=== PATIENT | female | born 1935 | race Caucasian/White ===

== ENCOUNTER 2020-08-05 16:37 | Inpatient (IN) | payer OTHER ==
[~2020-08-05] VITALS: Ht 170.2 cm; Wt 86.4 kg
--- NOTE | ~2020-08-05 | HC ---
[facility] [place] [address] CONSULTATION Name: MARY CARTY Room #: 201-P ADM IN M.R.#: [id number] Admission: 08/05/20 Attend Phys: Sebastien Qureshi MD Discharge: Date of : 36 Report #: [id number] THIS REPORT FOR: cc: FAM - No family physician/PCP FAM - No family physician/PCP Monico Daley MD ~ DOC #: [id number] Monico Daley MD DATE OF SERVICE: 08/06/2020 PREOPERATIVE DIAGNOSIS: Left parotid cyst. HISTORY OF PRESENT ILLNESS: The patient is an 84-year-old female who was found down after following a few days prior to admission, using her walker and fell backwards. She was unable to get up off the floor and had been on the floor since that unknown time until today when she called to get help. The patient has been admitted with a non-ST elevation myocardial infarction. Echocardiogram has been done this morning, and the patient is pending a cardiac catheterization. She was found to have elevated enzymes, but since the date of the fall is unknown, it is unknown how long the enzymes could have been positive and on decline. She was found to have a mass in her left parotid on admission. The patient was aware of this, but was not bothered by it, therefore, never sought evaluation. I was able to review a CT head done without contrast on admission. The CT was done more for stroke examination and brain examination. This showed a 3.1 x 1.8 cm left parotid "mass." I have reviewed this myself. It involves both superficial and deep lobe and does have features consistent with a cystic mass. This does not appear acute. There were no other findings of intracranial injury. The patient was referred to interventional radiology and underwent an ultrasound-directed fine needle aspiration of the cyst this morning, which has already been done at my evaluation. Results will be pending several days. PAST MEDICAL HISTORY: Significant for this recent myocardial infarction. Her past history is otherwise unknown. The patient is a poor historian. REVIEW OF SYSTEMS: Also difficult to obtain. MEDICATIONS: Reviewed in her electronic health record. ALLERGIES: None. PHYSICAL EXAMINATION: GENERAL: Shows a well developed 84-year-old female [place] [address] CONSULTATION Name: MARY CARTY Room #: 201-P [facility] IN ..#: [id number] Admission: 08/05/20 Attend Phys: Sebastien Qureshi MD Discharge: Date of : 36 Report #: [id number] She is awake and alert. Again, a poor historian. She does not seem concerned with the mass on her face, but tells me a biopsy was done earlier this morning. VITAL SIGNS: Show temperature of 97.7, blood pressure 149/45, respiration of 18, pulse of 70. HEENT: She is normocephalic. Pupils equal, round, reactive to light. Otologic examination, mild cerumen nonobstructing. Nasal exam deviated septum to the left. Oral cavity shows intact dentition, dry mouth, no mucosal lesions. NECK: Shows a Band-Aid present in the left parotid area. There is no mass present. This is soft and floppy consistent with recent aspiration of the cyst. EXTREMITIES: Shows otherwise no other abnormal adenopathy. Trachea is midline. NEUROLOGIC: Cranial nerves II-XII are intact. ASSESSMENT: 1. 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 2. Non-ST elevation myocardial infarction, currently pending workup. PLAN: The final diagnosis will need to await results of the needle biopsy. Cystic masses rarely are malignant. Differential diagnosis, however, would include a Warthin's tumor versus HIV. I would recommend obtaining an HIV to evaluate. If the patient truly did have myocardial infarction, nonurgent surgery should be delayed a minimum of 6 weeks, but may be 6 months. If this mass is truly cystic and can be managed by aspiration, this may be the best treatment for this patient as opposed to surgical excision. I appreciate the consultation and ability to share in her care. I will leave a phone message for to discuss. We will need to follow up pathology when it is available. MD ORLANDO Brandt/KAVON/VIV By: 1149 [id number] Monico Daley MD /tobin
[2020-08-05 16:38] VITALS: BP 166/88
[2020-08-05 17:08] LABS: ABSOLUTE NEUTROPHILS 5.6 thou/uL (1.4-8.2); BASOPHILS 0.3 % (0.0-2.0); HEMATOCRIT 35.9 % (37.0-47.0); HEMOGLOBIN 11.5 gm/dL (12.0-15.0); LYMPHOCYTES 17.6 % (24.0-44.0); MCH 28.7 pg (26.0-34.0); MCHC 32.2 g/dL (28.0-37.0); MCV 89.2 fL (80.0-100.0); MONOCYTES 8.3 % (1.0-8.0); PLATELET COUNT 270 thou/uL (150-400); POLYS 73.8 % (36.0-66.0); RBC 4.02 mil/uL (4.20-5.00); RDW 17.4 % (10.5-14.5); WBC 7.6 thou/uL (4.0-11.0)
[2020-08-05 17:18] LABS: CREATININE 0.9 mg/dL (0.6-1.0); POTASSIUM 3.4 mmol/L (3.5-5.1)
[2020-08-05 17:28] LABS: ALBUMIN 2.9 g/dL (3.4-5.0); TOTAL BILIRUBIN 1.1 mg/dL (0.2-1.0); TOTAL PROTEIN 6.1 g/dL (6.4-8.2); TROPONIN-I 0.18 ng/mL (<0.06)
[2020-08-05 18:22] LABS: URINE BLOOD 3+ (Negative); URINE CLARITY CLEAR; URINE COLOR YELLOW; URINE GLUCOSE-RANDOM* NEGATIVE (Negative); URINE KETONES 1+ (Negative); URINE LEUKOCYTES-REFLEX NEGATIVE (Negative); URINE NITRITE-REFLEX NEGATIVE (Negative); URINE PROTEIN (DIPSTICK) 3+ (Negative); URINE SPECIFIC GRAVITY >= 1.030 (1.005-1.035)
[2020-08-05 18:24] LABS: ICTOTEST (BILI CONFIRMATORY) Negative (Negative); URINE BILIRUBIN NEGATIVE (Negative)
[2020-08-05 18:34] LABS: SQUAMOUS 4-10 Moderate /LPF (0-3)
[2020-08-05 18:35] LABS: URINE WBC-REFLEX 0-5 Rare /HPF (0-5); YEAST-REFLEX Present (None Seen)
[2020-08-05 18:36] LABS: CASTS None Seen /LPF (None Seen); CRYSTALS None Seen /LPF (None Seen)
[2020-08-05 21:29] VITALS: BP 160/72
[2020-08-05 21:40] VITALS: BP 159/78
[2020-08-05 22:03] VITALS: BP 154/67
[2020-08-06] VITALS (13 sets, daily range): BP systolic 116–156; BP diastolic 45–94
--- NOTE | 2020-08-06 01:48 | NUR ---
ASSESSMENT: PT ARRIVED TO UNIT VIA ED, ACCOMPANIED BY STAFF MEMBERS. PT IS ALERT AND ORIENT TIMES THREE, FORGETFUL AT TIMES. DENIES PAIN. DENIES CP. A-FLUTTER PER MONITOR. VSS, AFBRILE. PT STATE THAT SHE CALLED EMS, WAS NOT AWARE OF HOW LONG SHE HAD BEEN "DOWN" POST FALL. INFORMED THIS RN THAT HER NEAREST SUPPORT SYSTEM WAS HER SISTER GURVINDER THAT RESIDES IN [place]. PT FOLLOW SIMPLE COMMANDS. AT TIMES PT FORGET WHAT WAS JUST MENTIONED TO HER R/T THE USE OF THE CALL BUTTON, FALL RISK AND GENERAL INFORMATION REGARDING TO HER CARE. PT IS ABLE TO PIVOT TO THE BSC PER ED. REMAINED IN BED AND REQUEST TO USE THE BED ARGUELLES WITH NO RESULTS. UA PENDING. CONSULTS FOR DR. JOHN AND DR. PRADO TO SEE ROUTINELY. ECHO FOR AM SCHEDULED. SKIN DRY AND INTACT. WILL CONTINUE TO MONITOR.
[2020-08-06 05:18] LABS: ALBUMIN 2.5 g/dL (3.4-5.0); CALCIUM 7.4 mg/dL (8.5-10.1); CREATININE 0.8 mg/dL (0.6-1.0); MAGNESIUM 1.7 mg/dL (1.8-2.4); TROPONIN-I 0.22 ng/mL (<0.06)
[2020-08-06 05:23] LABS: POTASSIUM 2.7 mmol/L (3.5-5.1)
--- NOTE | 2020-08-06 07:10 | EKG ---
[place] [address] [facility] [place] [address] ELECTROCARDIOGRAM REPORT Name: MARY CARTY Room #: 201-P ADM IN M.R.#: [id number] Admission: 08/05/20 Attend Phys: James Rodriguez Discharge: Date of : 36 Report #: [id number] [facility] ED Test Date: 2020-08-05 Test Time: 17:47:38 Pat Name: MARY CARTY Department: Room: 201 Gender: F Jumbo Operator: SHAWN : 1935 Requested By: Madonna Aguirre Order Number: [id number] MD: Chapincito Quesada Measurements Intervals [place] Rate: 80 P: NV: QRS: -29 QRSD: 101 T: 152 QT: 340 QTc: 393 Interpretive Statements Atrial flutter LVH with secondary repolarization abnormality No previous ECG available for comparison Electronically Signed On 08-06-2020 7:10:00 CDT by Chapincito Quesada [email or web address] <ELECTRONICALLY SIGNED> By: Chapincito Quesada MD, [facility] 08/06/20 0710 1747 1747 Chapincito Quesada MD, FACC /EPI
[2020-08-06 08:09] LABS: CHOLESTEROL 209 mg/dL (<200); HDL CHOLESTEROL 34 mg/dL (>40); LDL CHOLESTEROL 146 mg/dL (<100); TC:HDL 6.1 Ratio (Not establshd); TRIGLYCERIDE 147 mg/dL (<150); VLDL 29 mg/dL (<40)
--- NOTE | 2020-08-06 10:07 | 2DMMODE ---
[facility] [place] [address] 2 D/M-MODE ECHOCARDIOGRAM Name: MARY CARTY Room #: 201-P ADM IN M.R.#: [id number] Admission: 08/05/20 Attend Phys: Sebastien Qureshi MD Discharge: Date of : 36 Report #: [id number] THIS REPORT FOR: cc: FAM - No family physician/PCP FAM - No family physician/PCP Lui Wang MD ~ APPROVED REPORT Study performed: 08/06/2020 08:43:16 EXAM: Comprehensive 2D, Doppler, and color-flow Echocardiogram Patient Location: Bedside Room #: 201 Status: routine BSA: 1.91 HR: 72 bpm BP: 137/59 mmHg Rhythm: Atrial Flutter Other Information Study Quality: Adequate Indications Congestive Heart Failure Dizziness and Vertigo Dyspnea Atrial Flutter 2D Dimensions RVDd: 37.71 mm IVSd: 11.66 (7-11mm) LVOT Diam: 17.45 (18-24mm) LVDd: 44.29 mm PWd: 13.29 (7-11mm) Ascending Ao: 27.52 (22-36mm) LVDs: 30.45 (25-40mm) Left Atrium: 47.87 (27-40mm) Aortic Root: 24.06 mm IVC: 25.00 mm Volumes Left Atrial Volume (Systole) Single Plane 4CH: 58.20 mL Single Plane 2CH: 67.84 mL LA ESV Index: 36.00 mL/m2 Aortic Valve AoV Peak Ramón.: 4.86 m/s [facility] [place] [place] [address] 2 D/M-MODE ECHOCARDIOGRAM Name: MARY CARTY Room #: 201-P [facility] IN ..#: [id number] Admission: 08/05/20 Attend Phys: Sebastien Qureshi, Discharge: Date of : 36 Report #: [id number] AO Peak Gr.: 95.39 mmHg LVOT Max P.36 mmHg AO Mean Gr.: 49.18 mmHg LVOT Mean P.90 mmHg AO V2 Mean: 3.06 m/s LVOT Max V: 1.16 m/s AO V2 VTI: 102.09 cm LVOT Mean V: 0.78 m/s MINO (VTI): 0.60 cm2 LVOT V1 VTI: 25.42 cm MINO Vmax: 0.57 cm2 AI Vmax: 3.99 m/s SV (LVOT): 60.76 mL AI Grimes: 2.02 m/s2 AI PHT: 573.05 ms Pulmonary Valve PV Peak Ramón.: 1.31 m/s PV Peak Gr.: 6.84 mmHg Tricuspid Valve TR Peak Ramón.: 2.84 m/s TR Peak Gr.: 32.35 mmHg PA Pressure: 42.00 mmHg Left Ventricle The left ventricle is normal size. There is normal LV segmental wall motion. Mild concentric left ventricular hypertrophy. The left ventricular systolic function is normal. The left ventricular ejection fraction is within the normal range. LVEF is 60-65%. This study is not technically sufficient to allow evaluation of the LV diastolic function due to atrial fibrillation. Right Ventricle The right ventricle is normal size. The right ventricular systolic function is normal. Atria Left atrium is dilated. Right atrium is at the upper limits of normal. Aortic Valve The aortic valve is normal in structure. Aortic valve is calcified. Mild aortic regurgitation. Severe aortic stenosis. Mitral Valve The mitral valve is normal in structure. There is mitral annular calcification. Mild mitral regurgitation. No evidence of mitral valve stenosis. Tricuspid Valve The tricuspid valve is normal in structure. There is trace to mild tricuspid regurgitation. Estimated PAP 42 mmHg. There is moderate [facility] [address] [place] [address] 2 D/M-MODE ECHOCARDIOGRAM Name: MARY CARTY Room #: 201-P ADM IN [facility]#: [id number] Admission: 08/05/20 Attend Phys: Sebastien Qureshi, Discharge: Date of : 36 Report #: [id number] pulmonary hypertension. Pulmonic Valve The pulmonary valve is normal in structure. There is no pulmonic valvular regurgitation. Great Vessels The aortic root is normal in size. IVC is dilated and collapses >50% with inspiration. Pericardium There is no pericardial effusion. <Conclusion> The left ventricle is normal size. Mild concentric left ventricular hypertrophy. The left ventricular systolic function is normal. The right ventricle is normal size. Left atrium is dilated. Severe aortic stenosis. Mild aortic regurgitation. There is mitral annular calcification. Mild mitral regurgitation. <ELECTRONICALLY SIGNED> By: Lui Wang MD 08/06/20 1007 1007 1007 Lui Wang MD /INF
--- NOTE | 2020-08-06 12:30 | NUR ---
Case opened to follow for dc planning. Chart reviewed and play writer visited with the pt at bedside. She is alert and oriented x 3, [place]. She reports living indep in a 2nd story apt at [facility]. She walks with a rwalker and uses the elevator to get to the garage where her car is parked. She reports her only family is her sister Moon who lives in [place]. She does not have an AD/DPOA in place but notes Moon is who to call is she can not make decisions or has an emergency. She is open to a rehab eval and would like 5N if possible. She has not seen a doctor for 5 years and does not take any medications. She is open to cm making a new pt appointment with [facility] prior to dc. She is open to also but does not feel she can afford moving to a [facility] community or [facility]. Lif[facility]/medic alert also discussed. The pt states her fall was several days ago but she was able to crawl around and therefore did not feel there was an emergency. She did call the apt dealer development manager and her sister for help as she was not able to call 911 from her phone. She finally called out for help as she was getting "really hungry". PT/OT/5N evals are pending. Pt having cardiac cath and parotid mass biopsy today. Cm role introduced. Will follow.
--- NOTE | 2020-08-06 13:56 | NUR ---
PT IS ABLE TO ANSWER ALL ORIENTATION QUESTIONS APPROPRIATELY. SHE DOES APPEAR TO RETELL STORIES MULTIPLE TIMES. PT WENT TO ULTRA SOUND THIS AM AND HAD AN ASPIRATION OF PAROTID, FLUID SAMPLE WAS COLLECTED AND SENT TO LAB. PT HAS GOTTEN UP X2 ASSIST TO BEDSIDE COMMODE. PT HAS VERY CONCENTRATED AND FOUL SMELLING URINE. PT ABLE TO SIGN ALL CONSENTS ON HER OWN. PT LEFT UNIT AT 1345 TO GO TO CARDIAC CHANNEL DIRECTOR. NEW IV PLACED IN L FOREARM BY IV TEAM PRIOR TO GOING TO CHANNEL DIRECTOR.
[2020-08-06 15:06] LABS: BE(vivo) 0.2 mmol/L (-2 to +3); HCO3 26.5 mmol/L (22.0-26.0); HCO3 28.8 mmol/L (22.0-26.0); PCO2 VENOUS 50.7 mmHg (41.0-51.0); PO2 87.3 mmHg (80.0-100.0); PO2 VENOUS 33.3 mmHg (35.0-45.0); sO2 95.9 % (92.0-98.0)
[2020-08-06 15:07] LABS: pH 7.329 (7.360-7.450)
[2020-08-07 04:06] LABS: HIV ANTIBODY Non Reactive (Non Reactive)
[2020-08-07 04:35] VITALS: BP 157/56
[2020-08-07 04:56] LABS: HEMATOCRIT 30.7 % (37.0-47.0); HEMOGLOBIN 10.1 gm/dL (12.0-15.0); MCH 29.4 pg (26.0-34.0); RBC 3.45 mil/uL (4.20-5.00); RDW 17.2 % (10.5-14.5); WBC 6.9 thou/uL (4.0-11.0)
[2020-08-07 05:11] LABS: CALCIUM 7.8 mg/dL (8.5-10.1); CREATININE 0.8 mg/dL (0.6-1.0); POTASSIUM 3.1 mmol/L (3.5-5.1)
[2020-08-07 07:28] VITALS: BP 138/53
[2020-08-07 08:41] LABS: MAGNESIUM 2.3 mg/dL (1.8-2.4)
--- NOTE | 2020-08-07 10:37 | CATHLAB ---
[facility] [place] [address] INVASIVE PROCEDURE REPORT Name: MARY CARTY Room #: 201-P ADM IN M.R.#: [id number] Admission: 08/05/20 Attend Phys: Sebastien Qureshi MD Discharge: Date of : 36 Report #: [id number] THIS REPORT FOR: cc: FAM - No family physician/PCP FAM - No family physician/PCP Lui Wang MD ~ APPROVED REPORT Study performed: 08/06/2020 14:02:10 Patient Details Patient Status: Out-Patient Room #: The patient is a 84 year-old female Event Personnel Lui Wang Expander, Magali Jeffrey RN RN, Gemma De Los Santos RTR Leroy Torres Roberta Monitor, Martine Ham RTR, WIRE INSULATOR Monitor Procedures Performed Art Access - R femoral artery* Sixto Access - R femoral vein Right and Left Heart Cath w/or w/o Coronarie [id number] [facility] 70129 Initial Mod Sed Same Phys/QHP Gr [id number] 66232 Mod Sed Same Phys/QHP Ea 199654 Indication Non-STEMI , Atrial fibrillation, Dyspnea, Valvular heart disease, Murmur Risk Factors HypercholesterolemiaPhysical Activity Procedure Narrative The Right Groin^ was infiltrated with 1% Lidocaine subcutaneous anesthesia. A PINNACLE 6FR Sheath #[id number] sheath was inserted into the RFA. Coronary angiography was performed using coronary diagnostic catheters. The right coronary system was accessed and visualized with a JR4 catheter. The left coronary system was accessed and visualized with a JL4 catheter. The left ventricle was accessed and visualized with a ANGLE PIG catheter. There was no hematoma. Intraoperative Conscious Sedation Sedation start time: 1443 Case end Time: 1545 [facility] [address] [place] [address] INVASIVE PROCEDURE REPORT Name: MARY CARTY Room #: 201-P [facility] IN [facility].#: [id number] Admission: 08/05/20 Attend Phys: Sebastien Qureshi, Discharge: Date of : 36 Report #: [id number] Fentanyl mcg Versed mg Fluoro Time: 10.10 minutes Dose: DAP 69726.80 cGycm2 1311 mGy Contrast Type and Amount: Omnipaque 100 ml Coronary Angiography The patient's coronary anatomy is right dominant. Diagnostic Cath Left Main The left main artery is a large-caliber vessel, with moderate calcifications. There is a borderline, eccentric stenosis of 50% in the proximal segment. LAD The LAD is a moderate-sized caliber vessel, calcified in the proximal segments. Traverses the anterior wall and wraps around the apex. There is a borderline stenosis in the proximal segment, 50 to 70%. There is a moderate stenosis in the distal segment. Diagonal 1 This is a small caliber vessel, with no flow-limiting lesions. Diagonal 2 This is a small caliber vessel, with no flow-limiting lesions. Circumflex The left circumflex artery supplies 1 obtuse marginal artery. OM1 This is a moderate-sized caliber vessel, supplies several branches as it travels the lateral wall. There is one branch with a ostial stenosis, 60%. Right Coronary The RCA is a dominant vessel, calcified. There is a severe occlusion in the ostium, 95%. There is mild to moderate disease in the midsegment. R PDA There is a mild lesion in the ostium. RPLV This vessel is patent with no flow-limiting lesions. Left Ventriculography Left Ventriculography was not performed. Ejection Fraction was 55-60% based off patient's Echocardiogram. There is approximately a 35 mm gradient across the aortic valve. Hemodynamics The right atrial mean pressure is 14 mmHg. The right ventricular pressure is 65/5 mmHg. The pulmonary artery pressure is 68/15 mmHg with a mean of 38 mmHg. The mean pulmonary capillary wedge pressure is 33 mmHg. The aortic pressure is 137/50 mmHg with a mean of 79 mmHg. The left ventricular pressure is 137/49 mmHg with a mean of mmHg. The left ventricular end diastolic pressure is 60 mmHg. PaO2 saturation is 59.40 %. Arterial saturation is 95.90 %. The cardiac output using the Jaime method is 2.79 L/min. The cardiac index using [facility] [address] [place] [address] INVASIVE PROCEDURE REPORT Name: MARY CARTY Room #: 201-P [facility] IN M.R.#: [id number] Admission: 08/05/20 Attend Phys: Sebastien Qureshi, Discharge: Date of : 36 Report #: [id number] the Jaime method is 1.46 L/min/m2. The mean aortic valve gradient is 23.16 mmHg. The aortic valve area is 0.65 cm2. Conclusion 1. 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 2. There is a borderline stenosis involving the left main and proximal LAD. 3. The vessels are moderately calcified. 4. There is severe aortic stenosis and normal LV systolic function. 5. Right-sided hemodynamics as listed, including moderate to severe pulmonary hypertension. 6. Recommend risk factor management and CV consultation for surgery. <ELECTRONICALLY SIGNED> By: Lui Wang MD 08/07/20 1036 1036 Lui Wang MD /INF
[2020-08-07 11:05] VITALS: BP 151/67
[2020-08-07 12:42] VITALS: BP 151/67
--- NOTE | 2020-08-07 12:45 | NUR ---
Case discussed with the care team. Therapy and 5N evals are pending today as she was on bedrest yesterday. CTS consult for possible CABG or stenting. Appointment made with [facility] for new pcp appt with Dr. Craven 08/28/20 at 1:30pm. This has been noted on her dc instructions. No weekend dc anticipated. Murphy navigator aware of possible referral should the pt be able to return home with hh. Will follow.
--- NOTE | 2020-08-07 16:22 | NUR ---
PATIENT ALERT/ORIENTED - FORGETFUL AT TIMES. HAD CT DONE PER CTS REQUEST. WAITING TO HEAR PLAN FOR TREATMENT/INTERVENTION FROM CARDIOLOGY/CTS. PATIENT WORKED WITH PT/OT TODAY. SITTING UP IN CHAIR. IV FLUIDS INFUSING. REPLACING POTASSIUM PER ORDERS.
[2020-08-07 16:24] VITALS: BP 115/49
[2020-08-07 19:48] VITALS: BP 103/47
[2020-08-08] VITALS (7 sets, daily range): BP systolic 129–154; BP diastolic 42–78
[2020-08-08 00:06] LABS: GLYCOHEMOGLOBIN (HGB A1C) 5.6 % (4.8-5.6)
--- NOTE | 2020-08-08 03:15 | NUR ---
PT IS ALERT AND ORIENTED X4. LUNG ARE CLEAR . ON ROOM AIR. PT WAS SITING ON THE CHAIR WANTING TO GO BACK TO BED SO GAIT USED AND ASSIST X2. PT IS WEAK MINIMAL STRENGTH IN BEARING WEIGHT OR ABLE TO STAND. ABDOMEN IS ROUND BOWEL SOUNDS ACTIVE. DENIES ANY PAIN ISSUES AT THIS TIME. CALL LIGHT WITHIN REACH IF NEEDS ASSISTANCE. VOIDS PER BED ARGUELLES AT THIS TIME
[2020-08-08 09:51] LABS: HEMATOCRIT 32.3 % (37.0-47.0); HEMOGLOBIN 10.7 gm/dL (12.0-15.0); MCH 29.3 pg (26.0-34.0); MCV 88.7 fL (80.0-100.0); RBC 3.64 mil/uL (4.20-5.00); WBC 6.4 thou/uL (4.0-11.0)
[2020-08-08 10:01] LABS: CREATININE 0.8 mg/dL (0.6-1.0); MAGNESIUM 1.8 mg/dL (1.8-2.4); POTASSIUM 3.8 mmol/L (3.5-5.1)
[2020-08-09 03:57] VITALS: BP 181/70
--- NOTE | 2020-08-09 04:35 | NUR ---
PT IS ALERT AND ORIENTED DROWSY QUITE A BIT SLEEPS. INCONTINENT SOMETIMES AND OTHER TIMES CALLS FOR BEDPAN. EXTREMELY WEAK NOT ASSIST WITH TURNING IN BED TO CHANGE;. NEEDS STREGTHENING AND PT. VS STABLE. WILL CONTINUE TO ASSESS AND MONITOR. ON ROOM AIR. LUNGS ARE CLEAR . CALL LIGHT WITHIN REACH IF NEEDS ASSISTANCE
[2020-08-09 05:22] LABS: CALCIUM 8.4 mg/dL (8.5-10.1); CREATININE 0.7 mg/dL (0.6-1.0); MAGNESIUM 1.8 mg/dL (1.8-2.4); POTASSIUM 4.5 mmol/L (3.5-5.1)
[2020-08-09 07:29] VITALS: BP 166/72
--- NOTE | 2020-08-09 08:59 | NUR ---
ASSUMED PT CARE AT 0700. PT RESTING AT THIS TIME. AT 0840, PT ASSESSMENT PERFORMED CHARTED. PTS IV LEAKING, IV REMOVED AND PLACED A NEW IV IN THE LEFT UPPER FOREARM. PT TOLERATED IV INSERTION WELL. VSS. WILL CONTINUE TO MONITOR AND FOLLOW POC.
--- NOTE | 2020-08-09 11:46 | NUR ---
PT IN BED WATCHING TV. ASSESSMENT UNCHANGED. PT VOICES NO CONCERNS AT THIS TIME. VSS. WILL CONTINUE TO MONITOR AND FOLLOW POC.
[2020-08-09 11:53] VITALS: BP 133/66
[2020-08-09 15:39] VITALS: BP 167/73
--- NOTE | 2020-08-09 15:53 | NUR ---
PTS ASSESSMENT UNCHANGED. PT VOICES NO CONCERNS AT THIS TIME. VSS. WILL CONTINUE TO MONITOR AND FOLLOW POC. PTS PLAN IS TO GO TO NURSE PRACTICAL TOMORROW WITH DR ESCAMILLA.
[2020-08-09 20:01] VITALS: BP 149/74
[2020-08-09 23:49] VITALS: BP 149/74
[2020-08-10] VITALS (12 sets, daily range): BP systolic 115–170; BP diastolic 54–83
[2020-08-10 03:55] LABS: CALCIUM 8.5 mg/dL (8.5-10.1); MAGNESIUM 1.9 mg/dL (1.8-2.4); POTASSIUM 4.3 mmol/L (3.5-5.1)
--- NOTE | 2020-08-10 05:26 | NUR ---
ASSUMED CARE AT CHANGE OF SHIFT, AFLUTTER ON TELE, HR CONTROLLED IN THE 70S, DENIES PAIN OR SOB, REMAINS ON RA, ASESSMENTS CHARTED, BP ELEVATED THIS AM, MSW NOTIFIED, NO ORDERS RECEIVED, NPO FOR CARDIAC CATH TODAY, NO NEEDS AT THIS TIME, WILL CONTINUE TO MONITOR AND FOLLOW POC, WILL PASS ON REPORT
--- NOTE | 2020-08-10 07:48 | NUR ---
ASSUMED PT CARE AT 0700. PT IN BED WATCHING TV AT THIS TIME. PALMER, VP PUBLISHER DEVELOPMENT RN CALLED AND STATES THEY WILL BE UP TO GET PATIENT SOON FOR HER PROCEDURE AND TO GO AHEAD AND GIVE HER THE SCHEDULED ASA. PT ASSESSMENT CHARTED. PT VOICES NO CONCERNS AT THIS TIME. WILL CONTINUE TO MONITOR AND FOLLOW POC.
--- NOTE | 2020-08-10 09:26 | NUR ---
PT LEFT FOR DETACKER AT 0900.
--- NOTE | 2020-08-10 11:26 | CATHLAB ---
[facility] [address] [place] [address] INVASIVE PROCEDURE REPORT Name: MARY CARTY Room #: 201-P ADM IN M.R.#: [id number] Admission: 08/05/20 Attend Phys: Sebastien Qureshi MD Discharge: Date of : 36 Report #: [id number] THIS REPORT FOR: cc: FAM - No family physician/PCP FAM - No family physician/PCP Lui Wang MD ~ APPROVED REPORT Study performed: 08/10/2020 09:10:45 Patient Details Patient Status: In-Patient Room #: 201 The patient is a 84 year-old female Event Personnel Lui Wang Biochemist, John Almanza RN RN, Martine Ham RTR, JAVON Scrub, Nilda Colon RTR Monitor Procedures Performed Art Access - L femoral artery* MARY Place w/wo Plasty Single RCA 430003 Hemostasis w/ Mynx 38571 Initial Mod Sed Same Phys/QHP Gr5y [id number] 85757 Mod Sed Same Phys/QHP Ea 224583 Indication Non-STEMI , Arrhythmia, Dyspnea, Valvular heart disease, The patient had a recent cardiac catheterization, 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 Underwent surgical consultation, deemed high risk for surgery. Now presents for PCI of a severe RCA occlusion. Risk Factors Obesity, HypercholesterolemiaPhysical Activity, Hypertension Procedure Narrative The Left Groin^ was infiltrated with 1% Lidocaine subcutaneous anesthesia. A PINNACLE 6FR Sheath #[id number] sheath was inserted into the LFA^. Coronary angiography was performed using coronary diagnostic catheters. Pre-demployment femoral angiogram was performed . Closure device was deployed with a Fr 6f/7f MYNX ASSISTANT PURCHASING MANAGER. The patient tolerated the procedure well and there were no complications associated with the procedure. There was no hematoma. Intraoperative Conscious Sedation [facility] [address] [place] [address] INVASIVE PROCEDURE REPORT Name: MARY CARTY Room #: 201-P [facility]#: [id number] Admission: 08/05/20 Attend Phys: Sebastien Qureshi, Discharge: Date of : 36 Report #: [id number] Sedation start time: 9:36 Case end Time: 10:42 Fluoro Time: 14.40 minutes Dose: DAP 35102.70 cGycm2 2768 mGy Contrast Type and Amount: Visipaque 115 ml Coronary Angiography The patient's coronary anatomy is right dominant. Diagnostic Cath Right Coronary The RCA is a dominant vessel with severe occlusions in the ostium and proximal segment, 80 to 95%. Hemodynamics The aortic pressure is 175/61 mmHg with a mean of 105 mmHg. PCI Technique Lesion Percutaneous coronary intervention was performed on the ostial/proximal right coronary artery. The lesion stenosis prior to intervention was 95% with SANDY 3 flow. A LAUNCHER JR3.5 Guide Catheter was used to engage the ostium. A STRAIGHT LUGE Interventional Guidewire was used to cross the lesion. BALLOON DILATION A Balloon catheter EUPHORA 2.5mm x 12 mm was inserted and inflated up to 18.00atm for 16seconds. Additional Inflation: 14.00atm for 9seconds. A NC TREK 3.00mm x 12mm RX balloon catheter was inserted and inflated 18 Alex for 19 Seconds. Additional Inflation: 18 Alex for 18 Seconds. STENT DEPLOYMENT A drug-eluting stent RESOLUTE ULYSSES OTW 4.0mm x 30mm was inserted and inflated up to 12.00atm for 16seconds. Additional Inflation: 16.00atm for 10seconds. POST STENT DEPLOYMENT BALLOON DILATION A Balloon catheter NC TREK 4.00mm x 12mm RX was inserted and inflated up to 18.00atm for 15seconds. Additional Inflation: 18.00atm for 15seconds. Additional Inflation: 20.00atm for 20seconds. Final angiography reveals 5 % stenosis with SANDY 3 flow. Conclusion 1. Successful insertion of a drug-eluting stent in the ostial/proximal RCA segment. [facility] [address] [place] [address] INVASIVE PROCEDURE REPORT Name: MARY CARTY Room #: 201-P [facility] IN ..#: [id number] Admission: 08/05/20 Attend Phys: Sebastien Qureshi, Discharge: Date of : 36 Report #: [id number] 2. Normal LV systolic function. 3. Recommend dual antiplatelet therapy and aggressive risk factor management. <ELECTRONICALLY SIGNED> By: Lui Wang MD 08/10/206 1126 112 Lui Wang MD /INF
--- NOTE | 2020-08-10 11:49 | NUR ---
PT REMAINS ON BEDREST. ASSESSMENT UNCHANGED. LEFT GROIN SITE CLEAN DRY AND DRESSING INTACT. VSS. WILL CONTINUE TO MONITOR. PTS SISTER CALLED AND UPDATE WAS GIVEN, OKAY'D BY PATIENT. PTS SISTER WAS UPSET TO WHY THE PATIENT IS THE ONLY ONE GIVING UP DATES TO HER. PT IS A&OX3 AND HAS NOT EXPRESSED THAT SHE WOULD LIKE HER SISTER UPDATED. I EDUCATED THE SISTER THAT SHE MAY CALL THE UNIT FOR QUESTIONS WITH CODE GIVEN TO HER BY THE PATIENT AND IF THERE ARE ANY FURTHER QUESTIONS FOR THE PROVIDER THAT THE PROVIDER WILL BE NOTIFIED AND RN COULD TRY AND COORDINATE THE PHONE CALL BETWEEN HER AND THEM. WILL CONTINUE TO MONITOR PT AND FOLLOW POC.
--- NOTE | 2020-08-10 12:35 | EKG ---
[place] [address] [facility] [place] [address] ELECTROCARDIOGRAM REPORT Name: MARY CARTY Room #: 201-P ADM IN M.R.#: [id number] Admission: 08/05/20 Attend Phys: Sebastien Qureshi MD Discharge: Date of : 37 Report #: [id number] [facility] Test Date: 2020-08-10 Test Time: 11:25:57 Pat Name: MARY CARTY Department: Room: 201 P Gender: F Lan Engineer: : 1935 Requested By: Lui Wang Order Number: [id number] MD: Chapincito Quesada Measurements Intervals [place] Rate: 85 P: [place]: QRS: -20 QRSD: 100 T: 123 QT: 392 QTc: 467 Interpretive Statements Atrial flutter LVH with secondary repolarization abnormality Anterior ST elevation, probably due to LVH Compared to ECG 08/05/2020 17:47:38 ST (T wave) deviation now present Electronically Signed On 08-10-2020 12:35:11 CDT by Chapincito Quesada [email or web address] <ELECTRONICALLY SIGNED> By: Chapincito Quesada MD, [facility] 08/10/20 1235 1125 1125 Chapincito Quesada MD, [facility] /EPI
--- NOTE | 2020-08-10 15:43 | NUR ---
PTS BED REST IS COMPLETE. PTS GROIN SITE IS CLEAN DRY AND INTACT. VSS. PT REPOSITIONED. WILL CONTINUE TO MONITOR AND FOLLOW POC.
--- NOTE | 2020-08-10 16:17 | NUR ---
BPCI letter provided to patient, admits from home
--- NOTE | 2020-08-10 17:06 | PATH ---
[facility] [address] [place] [address] PATHOLOGY RPT PROCEDURE Name: MARY CARTY Room #: 201-P ADM IN .R.#: [id number] Admission: 08/05/20 Date of : 37 Discharge: Report #: [id number] Path Case #: [id number] Note [facility] Accession Number: [id number] TESTS RESULT FLAG UNITS REF RANGE LAB Clinician Provided Cytology Information No. of containers..01 Other (Miscellaneous) Source: LT PAROTID CYST DIAGNOSIS: LT PAROTID CYST INADEQUATE, INSUFFICIENT CELLS FOR STUDY. THIS INTERPRETATION INCLUDES EVALUATION OF A CELL BLOCK. NO VIABLE CELLULAR ELEMENTS PRESENT, CONSISTENT WITH ASPIRATION OF CYST FLUID. Pathologist ICD10: 02 K11.6 Signed out by: 02 Dania Swartz MD, Pathologist NPI- [id number] Performed by: 01 Danae Fortune, Mineral Resources Inspector ([facility]) Gross description: 01 10ML, YELLOW, 1TP 1CB /LCS 08/07/2020 0636 Local FLAG LEGEND: L-Low Normal,H-High Normal,LL-Alert Low,HH-Alert High <-Panic Low,>-Panic High,A-Abnormal,AA-Critical Abnormal Performed at: [address] [place] [address] Sam Verduzco MD, [address] [address] Dania Swartz MD, Specimen Comment: A courtesy copy of this report has been sent to [phone] Specimen Comment: Report sent to Specimen Comment: A duplicate report has been generated due to demographic updates. Performed at: [address], [place], [place] [id number] MD Sam Verduzco MD Phone: [phone]
[2020-08-11 04:30] VITALS: BP 114/69
--- NOTE | 2020-08-11 04:53 | NUR ---
ASSUMED PT CARE AROUND 1900. NO SIGNIFICANT EVENTS DURING THE NIGHT. PT SLEPT MOST OF THE NIGHT. RESPIRATIONS EVEN AND UNLABORED. AFLUTTER ON TELE. DENIES ANY CHEST PAIN. LEFT GROIN CATH SITE C/D/I, SOFT, NO HEMATOMA. INCONTIENT OF URINE - FEMALE EXTERNAL CATHETER IN PLACE. FALL PRECAUTIONS IN PLACE. PROGRESSING TOWARD POC GOALS.
[2020-08-11 04:54] LABS: HEMOGLOBIN 9.8 gm/dL (12.0-15.0); MCH 29.4 pg (26.0-34.0); MCHC 32.6 g/dL (28.0-37.0); MCV 90.2 fL (80.0-100.0); RBC 3.32 mil/uL (4.20-5.00); RDW 17.5 % (10.5-14.5)
[2020-08-11 05:42] LABS: ALBUMIN 2.2 g/dL (3.4-5.0); CALCIUM 7.9 mg/dL (8.5-10.1); CREATININE 0.8 mg/dL (0.6-1.0); MAGNESIUM 1.8 mg/dL (1.8-2.4); POTASSIUM 3.9 mmol/L (3.5-5.1); TOTAL BILIRUBIN 0.6 mg/dL (0.2-1.0); TOTAL PROTEIN 5.5 g/dL (6.4-8.2)
[2020-08-11 07:16] VITALS: BP 139/65
--- NOTE | 2020-08-11 07:54 | NUR ---
ASSUMED PT CARE AT 0700. 0750 PT ASSESSMENT PERFORMED CHARTED. PT VOICES NO C/O OF PAIN AT THIS TIME. PT RESTING DUE TO NOT SLEEPING WELL. VSS. WILL CONTINUE TO MONITOR TODAY AND FOLLOW POC.
--- NOTE | 2020-08-11 08:30 | EKG ---
[place] [address] [facility] [place] [address] ELECTROCARDIOGRAM REPORT Name: JHON CARTYCATE Ortiz Room #: 201-P ADM IN M.R.#: [id number] Admission: 08/05/20 Attend Phys: Sebastien Qureshi MD Discharge: Date of : 36 Report #: [id number] [facility] Test Date: 2020-08-11 Test Time: 07:06:03 Pat Name: MARY CARTY Department: Room: 201 P Gender: F Profile Stitching Machine Operator: FSCHWALCECI : 1935 Requested By: Lui Wang Order Number: [id number] MD: Sandeep Bailey Measurements Intervals [place] Rate: 74 P: [place]: QRS: -20 QRSD: 99 T: 144 QT: 403 QTc: 448 Interpretive Statements Atrial flutter with predominant 4:1 AV block LVH with secondary repolarization abnormality Baseline wander in lead(s) V5 Compared to ECG 08/10/2020 11:25:57 No significant change was found Electronically Signed On 08-11-2020 8:30:25 CDT by Sandeep Bailey [email or web address] <ELECTRONICALLY SIGNED> By: Sandeep Bailey MD, [facility] 08/11/20 0830 0706 Sandeep Bailey MD, [facility] /EPI
[2020-08-11 08:37] LABS: HEMATOCRIT 32.9 % (37.0-47.0); HEMOGLOBIN 10.8 gm/dL (12.0-15.0); MCH 29.2 pg (26.0-34.0); MCHC 32.8 g/dL (28.0-37.0); RBC 3.7 mil/uL (4.20-5.00); RDW 17.4 % (10.5-14.5)
[2020-08-11 08:45] LABS: CALCIUM 8.3 mg/dL (8.5-10.1); POTASSIUM 4.3 mmol/L (3.5-5.1)
[2020-08-11 08:58] LABS: TROPONIN-I 6.86 ng/mL (<0.06)
--- NOTE | 2020-08-11 09:39 | HC ---
[facility] [place] [address] CONSULTATION Name: MARY CARTY Room #: 201-P ADM IN M.R.#: [id number] Admission: 08/05/20 Attend Phys: Sebastien Qureshi MD Discharge: Date of : 36 Report #: [id number] THIS REPORT FOR: cc: THERESA - No family physician/PCP FAM - No family physician/PCP Kemar Soto MD ~ DOC #: [id number] Kemar Soto MD DATE OF SERVICE: 08/06/2020 REASON FOR CONSULTATION: We were asked by Dr. Wang to see the patient. HISTORY OF PRESENT ILLNESS: The patient is an 84-year-old admitted on 08/05/2020. The patient told me that she fell at home and was on the floor for 10 days, unable to get up. The patient was able to crawl, but was unable to stand. The patient states that she lost her balance and fell backwards and denies specific loss of consciousness. The patient denies chest pain or shortness of breath. Since admission, the patient has multiple studies including transthoracic echo that shows severe aortic valve stenosis with an aortic valve area of 0.6 cm2, peak gradient of 95 and a mean gradient of 49. Cardiac catheterization was also done. This shows a moderate left main stenosis and a severe right coronary ostial stenosis along with other disease. Left ventricular function by echo was satisfactory, 60-65% range. PAST MEDICAL HISTORY: The patient denies taking medication at home. She denies having chronic disease. ALLERGIES: Denies allergies. REVIEW OF SYSTEMS: I agree with her review of systems as dictated by the emergency room physician. PHYSICAL EXAMINATION: GENERAL: The patient is in bed, seems to be comfortable. VITAL SIGNS: Temperature 37.1, pulse rate 60, blood pressure 116/51, respiratory rate 18. HEENT: No scleral icterus. No arcus. NECK: No mass, no cervical bruit, but there is a transmitted murmur from the heart. CHEST: Clear to auscultation. HEART: Heart rhythm is regular with a loud aortic stenosis murmur radiating to the neck. ABDOMEN: Soft. [facility] [address] [place] [address] CONSULTATION Name: MARY CARTY Room #: 201-P ADM IN .R.#: [id number] Admission: 08/05/20 Attend Phys: Sebastien Qureshi MD Discharge: Date of : 36 Report #: [id number] EXTREMITIES: Edema in both lower extremities, somewhat asymmetric. Popliteal pulses are 1-2+ bilaterally. SKIN: No rash or infection. NEUROLOGIC: No obvious motor or sensory dysfunction. MUSCULOSKELETAL: No obvious bone or joint asymmetry or deformity. PSYCHIATRIC: Shows insight into problem, answers questions appropriately, but in general, the patient is quite frail. ASSESSMENT AND PLAN: The patient is ____ aortic valve and coronary artery disease. Normally, we would recommend aortic valve replacement and coronary artery bypass. The patient certainly meets definition of frailty and this is a sort of the patient in whom transaortic valve replacement is offered. Unfortunately, there may not be a good percutaneous option for treating the coronary disease. I will discuss this matter with Dr. Wang. The patient seems to be willing to submit to any procedure we as a group recommend, but she is interested in exploring for "lesser" invasive options. It is a privilege to participate in this challenging patient's care. Thank you for the consult. Kemar Soto MD JF/LUKAS/SANG <ELECTRONICALLY SIGNED> By: Kemar Soto MD 08/11/20 0939 [id number] 1541 Kemar Soto MD /nt
--- NOTE | 2020-08-11 10:26 | NUR ---
at 0827, pt had a rapid response team called. pt was up to the bedside of the commode with PT/OT when reported pt went unresponsive. PT/OT noted some tremoring. upon RN arrival pt was back in bed, pt unable to answer questions and follow commands. after a couple min pt started to come to. pts vitals were stable throughout the event, with no variation from baseline. we will continue to closely monitor patient and follow poc. Dr. Qureshi and Dr. Wang at bedside for the event.
[2020-08-11 11:15] VITALS: BP 91/35
[2020-08-11 15:22] VITALS: BP 93/37
[2020-08-11 20:00] VITALS: BP 97/50
[2020-08-11 23:41] VITALS: BP 101/51; BP 101/512
[2020-08-12] VITALS (15 sets, daily range): BP systolic 102–129; BP diastolic 35–81
--- NOTE | 2020-08-12 04:30 | NUR ---
ASSUMED PT CARE AROUND 1900. PT SLEPT MOST OF THE NIGHT. RESPIRATIONS EVEN AND UNLABORED. SHE REMAINS ON 2L NC. DENIES ANY PAIN. LEFT GROIN CATH SITE SOFT, NO HEMATOMA. VSS. AFEBRILE. AFIB/AFLUTTER ON TELE. HR 70S-80S. FALL PRECAUTIONS IN PLACE. PROGRESSING SLOWLY TOWARD POC GOALS. WILL CONTINUE TO MONITOR FURTHER.
[2020-08-12 06:13] LABS: CALCIUM 7.9 mg/dL (8.5-10.1); CREATININE 1.1 mg/dL (0.6-1.0); POTASSIUM 4.3 mmol/L (3.5-5.1)
[2020-08-12 06:19] LABS: TROPONIN-I 11.24 ng/mL (<0.06)
--- NOTE | 2020-08-12 09:04 | EKG ---
[address] [address] ELECTROCARDIOGRAM REPORT Name: JHON CARTYCATE Ortiz Room #: 201-P ADM IN M.R.#: [id number] Admission: 08/05/20 Attend Phys: Sebastien Qureshi MD Discharge: Date of : 36 Report #: [id number] [facility] Test Date: 2020-08-11 Test Time: 08:28:01 Pat Name: MARY CARTY Department: Room: 201 P Gender: F Rejector: FSCHWALBE : 1935 Requested By: Sebastien Qureshi Order Number: [id number] MD: Sandeep Bailey Measurements Intervals [place] Rate: 114 P: [place]: QRS: -61 QRSD: 94 T: 138 QT: 322 QTc: 444 Interpretive Statements Atrial flutter LVH with secondary repolarization abnormality Leftward axis Baseline wander in multiple lead(s) Compared to ECG 08/11/2020 07:06:03 Lateral T wave abnormality is more pronounced Electronically Signed On 08-12-2020 9:04:06 CDT by Sandeep Bailey [email or web address] <ELECTRONICALLY SIGNED> By: Sandeep Bailey MD, [facility] 08/12/20 0904 7 Sandeep Bailey MD, [facility] /EPI
--- NOTE | 2020-08-12 09:53 | NUR ---
Assess for length of stay. Admit with NSTEMI, fall, dehydration. Advanced age 84. Chart notes high surgical risk for revascularization. Pending heart cath today and is NPO. Was eating 50-100% meals, except 5/4 refused 2 meals and ate 75% of 3rd meal. No signficant wt changes. On statin for LDL 146, chol 209. Recommend resume heart healthy diet following cath. Note may need rehab. Low nutrition risk at this time
--- NOTE | 2020-08-12 17:29 | NUR ---
Patient with elevated troponins. 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 Discussed post acute care. Patient interested in 5N. Reviewed skilled list as well. Patient believes she has secondary insurance she is unsure of name. She belives shara [employer] ([employer] She reports if we call there they may be able to track info. Patient has noone who can bring her clothes or id.
--- NOTE | 2020-08-12 19:47 | NUR ---
Assumed pt care this am, VS stable. diet and medications are tolerated well. Troponin at 11.24 seen by cardio, scheduled for cat lab today at noon. Was kept NPO for lunch. External Fc in place draiin light yellow urine. Pt came back post cat, no stent placed on the left groin, frequent check do post. Can move at 10:30 pm post cat. POC followed with no signs or verbalizations of distress noted. Spoke to sister Moon earlier, tried to call back now but to no avail for an update, will endorsed to the night nurse. Moon Hogan [phone].
[2020-08-13] VITALS (9 sets, daily range): BP systolic 112–144; BP diastolic 42–81
--- NOTE | 2020-08-13 04:39 | NUR ---
pt on bedrest till 2229, set up in bed and turned as needed, no c/o pain, vss, external catheter with clear yellow urine, fluids infused and iv sl, remains on 2 l/nc, tolerated post cath tray without any difficulty, will con't to monitor per ppoc.
[2020-08-13 05:21] LABS: HEMATOCRIT 28.6 % (37.0-47.0); HEMOGLOBIN 9.2 gm/dL (12.0-15.0); MCH 29.3 pg (26.0-34.0); MCHC 32.1 g/dL (28.0-37.0); MCV 91.4 fL (80.0-100.0); RBC 3.12 mil/uL (4.20-5.00); RDW 17.9 % (10.5-14.5)
[2020-08-13 05:26] LABS: CALCIUM 7.7 mg/dL (8.5-10.1); CREATININE 0.9 mg/dL (0.6-1.0); POTASSIUM 4.3 mmol/L (3.5-5.1)
--- NOTE | 2020-08-13 09:10 | CATHLAB ---
[facility] [place] [address] INVASIVE PROCEDURE REPORT Name: MARY CARTY Room #: 201-P ADM IN M.R.#: [id number] Admission: 08/05/20 Attend Phys: Sebastien Qureshi MD Discharge: Date of : 36 Report #: [id number] THIS REPORT FOR: cc: FAM - No family physician/PCP FAM - No family physician/PCP Lui Wang MD ~ APPROVED REPORT Study performed: 08/12/2020 14:51:14 Patient Details Patient Status: In-Patient Room #: The patient is a 84 year-old female Event Personnel Lui Wang Health/Safety Job Titles, Jaren Martinez RN, Gemma De Los Santos RTR Scrub, Nilda Colon RTR Monitor, Radha Virk RT(R)() Monitor Procedures Performed Art Access - L femoral artery* Left Heart Cath w/or w/o Coronaries [id number] [facility] 17363 Initial Mod Sed Same Phys/QHP Gr [id number] 33702 Mod Sed Same Phys/QHP Ea [id number] Hemostasis with Manual pressure Indication Abnormal ECG, Non-STEMI , Syncope, The day after undergoing stent placement to the ostial RCA, the patient experienced an episode of syncope. The patient was on the commode, developed dyspnea and proceeded to pass out. ECG revealed ST segment depressions. No obvious complaints of angina or dyspnea was noted. The first 2 troponin levels were elevated but exhibited decreasing levels, related to recent PCI. However, there was a rise in troponin on the second day. Risk Factors Obesity, HypercholesterolemiaPhysical Activity, Coronary Artery Disease Previous Procedures/Diagnoses Previous PCI, Previous [place] Procedure Narrative The Left Groin^ was infiltrated with 1% Lidocaine subcutaneous [facility] [address] [place] [address] [place] [address] INVASIVE PROCEDURE REPORT Name: MARY CARTY Room #: 201-P [facility] IN [facility].#: [id number] Admission: 08/05/20 Attend Phys: Sebastien Qureshi, Discharge: Date of : 36 Report #: [id number] anesthesia. A PINNACLE 5FR Sheath #[id number] sheath was inserted into the LFA^. Coronary angiography was performed using coronary diagnostic catheters. The right coronary system was accessed and visualized with a JR4 catheter. The left coronary system was accessed and visualized with a JL4 catheter. Hemostasis was obtained with manual pressure following sheath removal without any complications. The patient tolerated the procedure well and there were no complications associated with the procedure. There was no hematoma. Intraoperative Conscious Sedation Sedation start time: 15:36 Case end Time: 16:02 Fentanyl 25 mcg Versed 1.5 mg Fluoro Time: 2.30 minutes Dose: DAP 5347.80 cGycm2 775 mGy Contrast Type and Amount: Omnipaque 48 ml Coronary Angiography The patient's coronary anatomy is right dominant. Diagnostic Cath Left Main The left main artery is moderately calcified with a moderate, eccentric proximal stenosis, 50%. LAD The LAD is a moderate-sized caliber vessel with a borderline stenosis in the proximal segment, 50 to 70%. There is a moderate stenosis in the distal segment. Diagonal 1 There is a small caliber vessel, with no flow-limiting lesions. Diagonal 2 There is a small caliber vessel, with no flow-limiting lesions. Circumflex The left circumflex artery supplies 1 moderate-sized OM vessel. OM1 This is a moderate-sized caliber vessel, supplying several branches as it courses through the lateral wall. This vessel is essentially patent. A superior branch has a borderline stenosis. Right Coronary There is a stent in the ostial/proximal RCA, patent with no flow-limiting lesions. The mid segment is moderately calcified with mild stenosis. R PDA There is a moderate-sized caliber vessel with a moderate ostial stenosis. RPLV This is a moderate-sized caliber vessel with a mild proximal stenosis. [address] [address] INVASIVE PROCEDURE REPORT Name: MARY CARTY Room #: 201-P [facility] IN ..#: [id number] Admission: 08/05/20 Attend Phys: Sebastien Qureshi, Discharge: Date of : 36 Report #: [id number] Left Ventriculography Left Ventriculography was not performed. Hemodynamics The aortic pressure is 120/46 mmHg with a mean of 70 mmHg. Conclusion 1. There is a patent stent in the ostial/proximal RCA. 2. There is a borderline stenosis in the left main and proximal LAD. This is essentially unchanged from previous catheterizations. 3. Previously evaluated by CV surgery, deemed high risk for open heart surgery. 4. Consider PCI of the left coronary artery if clinically indicated. 5. Recommend guideline directed medical therapy and risk factor management. <ELECTRONICALLY SIGNED> By: Lui Wang MD 08/13/20909 9 9 Lui Wang MD /INF
--- NOTE | 2020-08-13 15:47 | NUR ---
Dc planning visit made with pt at bedside. SNF options reviewed as the pt was declined for inpt rehab 5N due to endurance. Pt agreeable to [facility]. She also gave permission for her sister Moon to be updated and included in dc planning discussions. Pat updated and concerned about whether the pt can return home to indep living. She also notes that the pt rents her apt but owns their parents home in [place], [place]. She is not sure if she would qualify for medicaid should she need placement in the future. Referrals faxed to both SNF's noted above. Possible dc 1-2 days.
--- NOTE | 2020-08-13 17:32 | NUR ---
PT CARE ASSUMED AT 0700. ASSESSMENTS CHARTED. MEDICATIONS CHARTED. LAC IV. ATRIAL FLUTTER. INCONTINENT; FEMALE EXTERNAL CATHETER. O2 2 LPM NC. COVID TEST COMPLETE. PT AT HIGH RISK FOR CABG. PT TO WEAK FOR REHAB ACCORDING TO COREY.
--- NOTE | 2020-08-14 03:41 | NUR ---
SLEPT MOST OF SHIFT. ASSISTED TO TURN AND REPOSITION NEEDED FOR COMFORT AND SKIN CARE. FEMALE CATH REMAINS IN PLACE. PATIENT IS INCONTINENT. WORKING ON GOALS AND PLAN OF CARE FOR NOC. PLAN FOR POSSIBLE DISCHARGE TO SKILLED TODAY. CONTINUE TO MONITOR CLOSELY.
[2020-08-14 04:54] VITALS: BP 129/60
[2020-08-14 07:00] VITALS: BP 116/61
[2020-08-14 08:15] VITALS: BP 116/61
[2020-08-14 11:45] VITALS: BP 114/49
--- NOTE | 2020-08-14 11:50 | NUR ---
All parties anticipating dc to SNF at [facility] today. They have arranged for a 1500 w/c with o2 for transport. Pt and her sister Pat updated and in agreement. 124c and neg covid test results placed in the chart copy. CM to fax dc orders once finalized by the attending. Pt to be skilled for therapy with a goal of returning to her apt. Her sister is trying to get her 2nd ins info for the SNF. Nursing to call report.
[2020-08-14 12:09] VITALS: BP 114/49
[2020-08-14] MEDS ORDERED: LIPITOR40 MG PO (12:36)
[2020-08-14] MEDS ORDERED: CLOPIDOGREL75 MG PO (12:36)
[2020-08-14] MEDS ORDERED: ASPIRIN325 PO (12:36)
--- NOTE | 2020-08-14 14:51 | NUR ---
PT CARE ASSUMED AT 0700. ASSESSMENTS CHARTED. MEDICATIONS CHARTED. LAC IV. ATRIAL FLUTTER. O2 2LPM NC. ACHS. PT TAKES 2 ASSISTS TO STAND. PT IS BEING TRANSFERRED TO [facility]. REPORT GIVEN TO HASEEB. PT IS INCONTINENT OF BLADDER.
--- NOTE | 2020-08-17 12:06 | PATH ---
[facility] [place] [address] PATHOLOGY RPT PROCEDURE Name: MARY CARTY Room #: 201-P DIS IN M.R.#: [id number] Admission: 08/05/20 Date of : 37 Discharge: 08/14/20 Report #: [id number] Path Case #: [id number] [facility] Accession Number: [id number] . 01 Material submitted: . parotid gland - LEFT PAROTID CYST. Modifiers: left . 02 Diagnosis: Special studies report received from [facility], [address] [place] [address], [address], [place], [address], on case [id number], labeled with their number [id number], dated 08/10/2020. . Flow Cytometry: Hematologic Neoplasia Assessment . Clinical History . . Indication for Study Evaluation for hematolymphoid neoplasia . Specimen Tissue, LT Parotid . Viability 16% (7AAD exclusion) . Interpretation Tissue, LT Parotid: No significant lymphoid immunophenotypic abnormalities detected . Comments No immunophenotypic evidence of non-Hodgkin lymphoma, blastic cells or plasmacytoma is detected in this analysis. Some large cell lymphomas are prone to rapid degeneration which can render such lesions undetectable by flow cytometry. Also, Hodgkin lymphoma, some T cell lymphomas, and T-cell-rich B-cell lymphoma may not be detectable by flow cytometry. A thorough clinical, histologic and immunohistochemical correlation is recommended for full exclusion of non-hematolymphoid cellular processes, atypical lymphoid reactions, granulomatous disease or Hodgkin lymphoma. . Populations Analyzed Lymphocytes: 2% B-cells: 0.1%, polytypic/polyclonal sIg light chain pattern (K/L= 1.2:1) T-cells: no significant abnormalities of the markers tested CD4:CD8: 1.1 NK cells: 0.1% Granulocytes: 0.7% Present and phenotypically unremarkable for the [facility] [address] [place] [address] PATHOLOGY RPT PROCEDURE Name: CARTYJHONCATE Ortiz Room #: 201-P DIS IN M.R.#: [id number] Admission: 08/05/20 Date of : 37 Discharge: 08/14/20 Report #: [id number] Path Case #: [id number] markers tested Monocytes/ 0.05% Present and phenotypically unremarkable for the Histiocytes: markers tested CD45 Negative 97% No significant reactivity with the markers tested Events/Debris: (may represent non-hematolymphoid cells, degenerated cells, debris, unlysed red blood cells, etc.) . Morphologic Evaluation A slide was reviewed for customer quality specialist purposes only. . Specimen Description Cell Yield: 2.40 x 10 and 6 This sample is less than 50% viable which is considered suboptimal for routine clinical flow cytometry analysis. The analysis, however, is being reported because the sample is considered irreplaceable. Because of diminished viability, these results must be interpreted in the context of all available clinical, laboratory, and morphologic data. . Reagent(s) Used CD2, CD3, CD4, CD5, CD7, CD8, CD10, CD11b, CD19, CD20, CD23, CD30, CD38, CD43, CD45, CD56, CD57, FMC-7, HLA-DR, kappa, lambda . at [facility]. Chris Golden MD Pathologist . . Intended Use Flow cytometry is optimally used to immunophenotypically characterize abnormal populations when they are detected. Negative flow cytometry results do not exclude lymphoma or neoplasia. Possible false negative flow cytometry results may occur in, but are not limited to, the following: neoplastic cells in Hodgkin lymphoma are not typically adequately represented by routine clinical flow cytometry; neoplastic cells may be lost or inadequately represented due to degeneration, sample processing, sampling artifact, or patchy involvement; plasma cells are typically underrepresented by flow cytometry; immature cells/blasts may be underrepresented due to hemodilution; myeloproliferative disorders and low grade myelodysplasia may not have immunophenotypic abnormalities or increased blasts. Correlation with all available clinical, laboratory, and morphologic data is always necessary to assess for the possibility of false negative flow cytometry results and to establish a diagnosis. Each marker in this analysis was used to assess for potential antigenic abnormalities or to evaluate detected abnormalities. . Any image or images that accompany this report are licensing representative images only and should not be used to render a diagnosis. [address] [address] PATHOLOGY RPT PROCEDURE Name: MARY CARTY Room #: 201-P DIS IN M.R.#: [id number] Admission: 08/05/20 Date of : 37 Discharge: 08/14/20 Report #: [id number] Path Case #: [id number] . Disclaimer(s) This test was developed and its performance characteristics determined by [facility]. It has not been cleared or approved by the Food and Drug Administration. . [facility] is a business unit of [facility] a wholly-owned subsidiary of [employer]. . This test was performed at [facility]. at [address], [place], [address] - Patient Coordinator Front Desk: Ayush Lauren MD. . For inquiries, the physician may contact Lab: [phone] . A complete copy of the report is on file. . Professional services performed by [facility]. at [address], [place] [address]. Technical services performed by [facility]. at [address], [place] [address]. . (IUV:amj 08/11/2020) . [facility] 08/17/2020 1031 Local . 02 Electronically signed: . Dania Swartz MD, Pathologist NPI- [id number] . 02 Pathologist provided ICD-10: K11.6 . 02 CPT . 109123 Specimen Comment: A courtesy copy of this report has been sent to [phone] Specimen Comment: Report sent to Performed at: [address] [facility], [place], [place] [id number] MD Sam Verduzco MD Phone: [phone] Performed at: [address] [id number] MD Dania Swartz MD Phone: [phone]
== END 2020-08-14 16:02 | DRG 246 ==
LOC: ER 16:37 → EROBS 20:01 → 2N 20:01
PROVIDERS: Hospitalist; Internal Medicine Cardiovascular Disease; Nurse Practitioner; Otolaryngology Plastic Surgery within the Head & Neck; Physician Assistant; ADMIT Internal Medicine; ATTEND Internal Medicine
PROC: B2111ZZ Fluoroscopy of Multiple Coronary Arteries using Low Osmolar Contrast (ICD-10-PCS; principal; 2020-08-06)
PROC: 0J953ZZ Drainage of Left Neck Subcutaneous Tissue and Fascia, Percutaneous Approach (ICD-10-PCS; principal; 2020-08-06)
PROC: 4A023N7 Measurement of Cardiac Sampling and Pressure, Left Heart, Percutaneous Approach (ICD-10-PCS; principal; 2020-08-06)
PROC: 027034Z Dilation of Coronary Artery, One Artery with Drug-eluting Intraluminal Device, Percutaneous Approach (ICD-10-PCS; 2020-08-10)
PROC: B211YZZ Fluoroscopy of Multiple Coronary Arteries using Other Contrast (ICD-10-PCS; 2020-08-10)
PROC: 4A023N7 Measurement of Cardiac Sampling and Pressure, Left Heart, Percutaneous Approach (ICD-10-PCS; 2020-08-12)
PROC: B2111ZZ Fluoroscopy of Multiple Coronary Arteries using Low Osmolar Contrast (ICD-10-PCS; 2020-08-12)
DX: I21.4 Non-ST elevation (NSTEMI) myocardial infarction (principal); E43 Unspecified severe protein-calorie malnutrition; E87.0 Hyperosmolality and hypernatremia; E87.2 Acidosis; I48.92 Unspecified atrial flutter; I25.10 Atherosclerotic heart disease of native coronary artery without angina pectoris; R22.1 Localized swelling, mass and lump, neck; I50.9 Heart failure, unspecified; Z20.822 Contact with and (suspected) exposure to COVID-19; E86.0 Dehydration; I89.9 Noninfective disorder of lymphatic vessels and lymph nodes, unspecified; M19.90 Unspecified osteoarthritis, unspecified site; E87.6 Hypokalemia; E21.5 Disorder of parathyroid gland, unspecified; Z60.2 Problems related to living alone; E11.9 Type 2 diabetes mellitus without complications; R53.81 Other malaise; I35.0 Nonrheumatic aortic (valve) stenosis; B37.9 Candidiasis, unspecified; E78.5 Hyperlipidemia, unspecified; Z98.61 Coronary angioplasty status; Z87.891 Personal history of nicotine dependence
CPT/HCPCS: 10081

== ENCOUNTER 2020-08-29 12:04 | Inpatient (IN) | payer OTHER ==
[~2020-08-29] VITALS: Ht 160 cm; Wt 83.5 kg
[~2020-08-29 12:04] MED LIST: ASPIRIN325 PO; CLOPIDOGREL75 MG PO; LIPITOR40 MG PO
[2020-08-29 12:14] VITALS: BP 106/43
[2020-08-29 13:24] LABS: ABSOLUTE NEUTROPHILS 4.3 thou/uL (1.4-8.2); BASOPHILS 0.6 % (0.0-2.0); EOSINOPHILS 2.7 % (0.0-3.0); HEMATOCRIT 21.7 % (37.0-47.0); HEMOGLOBIN 7.1 gm/dL (12.0-15.0); LYMPHOCYTES 27.5 % (24.0-44.0); MCH 29.3 pg (26.0-34.0); MCHC 32.8 g/dL (28.0-37.0); MCV 89.2 fL (80.0-100.0); PLATELET COUNT 356 thou/uL (150-400); POLYS 60.2 % (36.0-66.0); RBC 2.43 mil/uL (4.20-5.00); RDW 17.6 % (10.5-14.5); WBC 7.2 thou/uL (4.0-11.0)
[2020-08-29 13:32] LABS: ANION GAP 7 mmol/L (7-16); BUN 19 mg/dL (7-18); CALCIUM 7.9 mg/dL (8.5-10.1); CHLORIDE 109 mmol/L (98-107); CO2 29 mmol/L (21-32); CREATININE 0.7 mg/dL (0.6-1.0); GLUCOSE 117 mg/dL (74-106); SODIUM 145 mmol/L (136-145)
[2020-08-29 13:42] LABS: ALBUMIN 2.1 g/dL (3.4-5.0); SGOT 19 U/L (15-37); SGPT 17 U/L (30-65); TOTAL BILIRUBIN 0.3 mg/dL (0.2-1.0); TOTAL PROTEIN 5.9 g/dL (6.4-8.2); TROPONIN-I <0.06 ng/mL (<0.06)
[2020-08-29 13:48] LABS: PROTIME 10.9 Seconds (10.5-12.1)
[2020-08-29 13:56] LABS: APTT 20.2 Seconds (24.5-32.8)
[2020-08-29 16:39] LABS: URINE BLOOD 3+ (Negative); URINE GLUCOSE-RANDOM* NEGATIVE (Negative); URINE KETONES TRACE (Negative); URINE PROTEIN (DIPSTICK) 3+ (Negative)
[2020-08-29 16:40] LABS: URINE CLARITY CLOUDY; URINE COLOR RED; URINE LEUKOCYTES-REFLEX 2+ (Negative); URINE NITRITE-REFLEX POSITIVE (Negative)
[2020-08-29 16:43] LABS: ICTOTEST (BILI CONFIRMATORY) Negative (Negative); URINE BILIRUBIN NEGATIVE (Negative)
[2020-08-29 16:53] LABS: SSA (PROTEIN CONFIRMATORY) 3+ (APPROX. 200-500) mg/dL (Negative)
[2020-08-29 17:02] LABS: CASTS None Seen /LPF (None Seen); CRYSTALS None Seen /LPF (None Seen); SQUAMOUS None Seen /LPF (0-3); URINE RBC >20 Many /HPF (NONE SEEN); URINE WBC-REFLEX 6-15 Few /HPF (0-5)
[2020-08-29 19:50] VITALS: BP 124/53
[2020-08-29 20:25] VITALS: BP 126/47
--- NOTE | 2020-08-29 20:30 | NUR ---
Pt. [facility] accompanied by staff. She is alert and oriented and offers no complaints. Pt. introduced to the floor staff and oriented to room. Bed alarm is on.
--- NOTE | 2020-08-29 23:19 | NUR ---
Pt. resting quietly in bed witout any complaints. Admission assessment and history is completed.
[2020-08-30] VITALS (8 sets, daily range): BP systolic 123–144; BP diastolic 45–77
[2020-08-30 04:52] LABS: MCH 29.5 pg (26.0-34.0); MCHC 33.5 g/dL (28.0-37.0); MCV 88.2 fL (80.0-100.0); RBC 2.11 mil/uL (4.20-5.00); RDW 17.5 % (10.5-14.5); WBC 6.7 thou/uL (4.0-11.0)
[2020-08-30 04:54] LABS: HEMATOCRIT 18.6 % (37.0-47.0); HEMOGLOBIN 6.2 gm/dL (12.0-15.0)
[2020-08-30 05:12] LABS: CALCIUM 7.6 mg/dL (8.5-10.1); CREATININE 0.6 mg/dL (0.6-1.0)
--- NOTE | 2020-08-30 06:00 | NUR ---
Pt. rested quietlly at intervals during the night when checked on during frequent rounds. Continues to have gross hematuria from johnson catheter.
--- NOTE | 2020-08-30 13:03 | NUR ---
ASSUMED PT CARE THIS AM. PT VSS, A&OX4. PATIENT REPORTING NO PAIN, NUMBNESS, OR TINGLING. PATIENT HAS EDEMA IN THE LOWER EXTREMETIES AND FEET. RAGLAND CATHETER DRAINING RED URINE. PATIENT TOOK MEDICATIONS WITHOUT ISSUE. PATIENT REMAINS ON TELE. IV PATENT, FLUIDS INFUSING. ON 1 LITER OXYGEN VIA NASAL CANNULA. PATIENT RECEIVED ONE UNIT OF RED BLOOD CELLS WITHOUT ANY ISSUE, AND NO ADVERSE REACTION NOTED. PATIENT ABLE TO MAKE NEEDS KNOWN. FALL PRECAUTIONS IN PLACE, CALL LIGHT WITHIN REACH.
[2020-08-30 14:24] LABS: HEMOGLOBIN 7.5 gm/dL (12.0-15.0)
--- NOTE | 2020-08-30 15:16 | EKG ---
[place] [address] [employer] [facility] [place] [address] ELECTROCARDIOGRAM REPORT Name: MARY CARTY Room #: 462-P ADM IN M.R.#: [id number] Admission: 08/29/20 Attend Phys: Alcon Camp MD Discharge: Date of : 37 Report #: [id number] [facility] ED Test Date: 2020-08-29 Test Time: 12:32:43 Pat Name: MARY CARTY Department: Room: 462 Gender: F Export Clerk: JCHAILA : 1935 Requested By: Jeremy Sarabia Order Number: [id number] MD: Sandeep Bailey Measurements Intervals [place] Rate: 79 P: ME: QRS: -19 QRSD: 95 T: 158 QT: 371 QTc: 426 Interpretive Statements Atrial flutter Nonspecific ST and T wave abnormality Compared to ECG 08/11/2020 08:28:01 ST and T wave abnormality is less pronounced Electronically Signed On 08-30-2020 15:16:26 CDT by Sandeep Bailey [email or web address] <ELECTRONICALLY SIGNED> By: Sandeep Bailey MD, [facility] 08/30/20 1516 123 123 Sandeep Bailey MD, [facility] /EPI
--- NOTE | 2020-08-31 05:01 | NUR ---
PATIENT AOX4 MAKES NEEDS KNOWN. BLOOD IN THE URINE. PATIENT DENIED PAIN OR DISCOMFORT. PERICARE AND CATH CARE DONE. FALL PRECAUTION IN PLACE. PATIENT IN BED ASLEEP AT THIS TIME BREATHING REGULAR AND UNLABOURED.
[2020-08-31 07:16] VITALS: BP 165/88
[2020-08-31 09:42] LABS: HEMATOCRIT 24.3 % (37.0-47.0); HEMOGLOBIN 7.7 gm/dL (12.0-15.0); MCH 28.5 pg (26.0-34.0); MCHC 31.6 g/dL (28.0-37.0); MCV 90.1 fL (80.0-100.0); RBC 2.69 mil/uL (4.20-5.00); RDW 17.5 % (10.5-14.5)
--- NOTE | 2020-08-31 11:46 | NUR ---
ASSUMED CARE OF PT AT 0700 THIS MORNING. PT WAS ADMITTED FOR HEMATURIA AND HAS INDWELLING CATH IN PLACE. PT HAS BEEN IRRIGATED WITH CONTINUOUS CLOTS. URINE IS RHYS RED. PT IS A/OX4, EYES PERRLA, SKIN INTACT. SLIGHT DIZZINESS WHEN SITTING AT THE BEDSIDE. ASSESSMENTS OTHERWISE UNREMARKABLE. RX AND TX GIVEN SCHEDULED. IV IN RIGHT AC. WITH NS AT 75 ML/HR. CALL LIGHT AND OTHER NEEDS WITHIN REACH. PA GIVEN ORDERS FOR CBI AND AND TO MAINTAIN A PINK FLUID RETURN.
--- NOTE | 2020-08-31 12:46 | NUR ---
CM S[facility]. PT ADM[facility] FROM [facility], QUYEN STATED PT IS WELCOMED TO [facility]TRN, BUT SHE WOULD LIKE TO SPK W/PT'S SISTER, AND PLANS TO VISIT PT. CM ATTEMPTED PAT/SISTER, NO ANSWER. PT IS AGREEABLE TO RTRN TO SNF. PT LIVES IN AN APT WITH ELEVATOR. PT LIVES ALONE, PT STATED SHE DRIVES AND DOES HER OWN ERRANDS. PT IS USU INDEPENDENT W/ADLS. PT USES WALKER FOR GAIT. CM TO CONT TO FOLLOW.
[2020-08-31 21:00] VITALS: BP 148/46
--- NOTE | 2020-09-01 04:10 | NUR ---
ASSUMED CARE OF PT AT SHIFT CHANGE. PT IS AOX4 AND LETS NEEDS BE KNOWN. FALL PRECAUTION IN PLACE. RAGLAND REPLACED WITH A 3-WAY CATH FOR CBI AROUND 2030HRS. CBI ADJUSTED FOR CLEAR/LIGHT PINK OUTPUT. PT REPORTED SOME PAIN. PT IS ON 1L O2 VIA NC FOR COMFORT. PT DENIED NAUSEA. ASSESSMENT CHARTED. PT WAS ABLE TO GET COMFORTABLE AND SLEEP PART OF THE SHIFT. VSS AND NO S/S OF ACUTE DISTRESS. WILL CONTINUE TO MONITOR FOR CHANGES.
[2020-09-01 07:31] LABS: HEMATOCRIT 24.5 % (37.0-47.0); HEMOGLOBIN 7.9 gm/dL (12.0-15.0); MCH 29.1 pg (26.0-34.0); MCHC 32.3 g/dL (28.0-37.0); RBC 2.72 mil/uL (4.20-5.00); RDW 17.8 % (10.5-14.5)
[2020-09-01 08:00] VITALS: BP 140/57
[2020-09-01 08:27] LABS: CREATININE 0.6 mg/dL (0.6-1.0); POTASSIUM 4.3 mmol/L (3.5-5.1)
[2020-09-01] MEDS ORDERED: MIRALAX17 GM PO (09:32)
[2020-09-01] MEDS ORDERED: CEFUROXIME500 MG PO (09:32)
--- NOTE | 2020-09-01 13:49 | NUR ---
CARE TEAM INDICATED THAT PT IS MEDICALLY STABLE TO DC BACK TO [facility] ROGER SKILLED THIS DAY. CM REACHED OUT TO [facility] AND THEY ARE WILLING AND ABLE TO ACCEPT PT BACK. [facility] TRANSPORT ARRANGED FOR [phone]. CHART COPY MADE. CM FAXED ORDERS, NEGATIVE COVID TEST, I&O'S, AND MED LIST PER FACILITY REQUEST. CM ATTEMPTED MULTIPAL PC'S TO PT'S SISTER TO NOTIFY HER OF PT'S DC AND WASN'T ABLE TO REACH HER. CM NOTIFIED PT OF THIS AND SHE INDICATED SHE WOULD CALL HER ONCE SHE RETURNED TO FACILITY. NURSE GIVEN NUMER FOR REPORT. NO OTHER CM INTERVENTION INDICATED. CASE CLOSED.
--- NOTE | 2020-09-01 15:22 | NUR ---
Assumed pt care at 7am.Pt in bed resting and sometimes watching tv. Assessment completed.Vss.Pt in bed for all meals. Good appetite noted.Am meds given and well tolerated.Elsy Zurita here,order noted.[facility] johnson clamped and pt was later seen by Dr Rodriguez here,dc order noted.marketing content manager arranged for transport. At 1522,pt left per van with her personal belongings after saline lock dc'd.Attempted made x4 to give report but no lock.Transporter told to ask the receiving nurse call for report.
== END 2020-09-01 15:24 | DRG 811 ==
LOC: ER 12:04 → 4W 17:19 → EROBS 17:19 → 4W 20:07
PROVIDERS: Emergency Medicine; Nurse Practitioner; Physician Assistant; ADMIT Hospitalist; ATTEND Hospitalist
PROC: 30233N1 Transfusion of Nonautologous Red Blood Cells into Peripheral Vein, Percutaneous Approach (ICD-10-PCS; principal; 2020-08-30)
DX: D62 Acute posthemorrhagic anemia (principal); E43 Unspecified severe protein-calorie malnutrition; N39.0 Urinary tract infection, site not specified; S37.22XA Contusion of bladder, initial encounter; I48.92 Unspecified atrial flutter; I25.10 Atherosclerotic heart disease of native coronary artery without angina pectoris; R31.0 Gross hematuria; I10 Essential (primary) hypertension; E78.5 Hyperlipidemia, unspecified; I08.0 Rheumatic disorders of both mitral and aortic valves; X58.XXXA Exposure to other specified factors, initial encounter; Z20.822 Contact with and (suspected) exposure to COVID-19; Z95.5 Presence of coronary angioplasty implant and graft; I25.2 Old myocardial infarction; Z87.891 Personal history of nicotine dependence; Y93.89 Activity, other specified; Y92.89 Other specified places as the place of occurrence of the external cause; Y99.8 Other external cause status; Z68.32 Body mass index [BMI] 32.0-32.9, adult; Z79.01 Long term (current) use of anticoagulants; Z79.899 Other long term (current) drug therapy; Z79.82 Long term (current) use of aspirin
CPT/HCPCS: 10045

== ENCOUNTER → 2020-09-18 | Outpatient (CLI) | payer OTHER ==
[~2020-09-18] MED LIST changes: +CEFUROXIME500 MG PO; +MIRALAX17 GM PO
== END ==
LOC: SJCVC 11:11
PROVIDERS: ATTEND Internal Medicine Cardiovascular Disease
DX: R94.31 Abnormal electrocardiogram [ECG] [EKG] (principal); I48.92 Unspecified atrial flutter; I25.10 Atherosclerotic heart disease of native coronary artery without angina pectoris; I35.0 Nonrheumatic aortic (valve) stenosis; E78.5 Hyperlipidemia, unspecified; E78.00 Pure hypercholesterolemia, unspecified; R31.9 Hematuria, unspecified; Z79.82 Long term (current) use of aspirin; Z79.899 Other long term (current) drug therapy; Z87.891 Personal history of nicotine dependence

== ENCOUNTER → 2020-12-18 | Outpatient (CLI) | payer OTHER | LOC: SJCVC 10:31 | PROVIDERS: ATTEND Internal Medicine Cardiovascular Disease | DX: R94.31 Abnormal electrocardiogram [ECG] [EKG] (principal); I25.10 Atherosclerotic heart disease of native coronary artery without angina pectoris; I48.92 Unspecified atrial flutter; I35.0 Nonrheumatic aortic (valve) stenosis; E78.00 Pure hypercholesterolemia, unspecified; R31.9 Hematuria, unspecified; E78.5 Hyperlipidemia, unspecified; Z79.82 Long term (current) use of aspirin; Z79.899 Other long term (current) drug therapy; Z87.891 Personal history of nicotine dependence; Z95.818 Presence of other cardiac implants and grafts ==

== ENCOUNTER → 2021-01-27 | Outpatient (CLI) | payer OTHER | LOC: SJCVCIMAG 10:27 | PROVIDERS: ATTEND Internal Medicine Cardiovascular Disease | DX: I25.89 Other forms of chronic ischemic heart disease (principal); I49.3 Ventricular premature depolarization; I48.91 Unspecified atrial fibrillation; R06.00 Dyspnea, unspecified; I25.10 Atherosclerotic heart disease of native coronary artery without angina pectoris; I48.92 Unspecified atrial flutter; I35.0 Nonrheumatic aortic (valve) stenosis; E78.00 Pure hypercholesterolemia, unspecified; R31.9 Hematuria, unspecified; R60.9 Edema, unspecified; I10 Essential (primary) hypertension; R60.0 Localized edema; D64.9 Anemia, unspecified; E78.5 Hyperlipidemia, unspecified; Z87.891 Personal history of nicotine dependence; Z79.82 Long term (current) use of aspirin; Z79.899 Other long term (current) drug therapy ==

== ENCOUNTER → 2021-02-24 | Outpatient (CLI) | payer OTHER | LOC: SJCVC 10:38 | PROVIDERS: ATTEND Internal Medicine Cardiovascular Disease | DX: I35.0 Nonrheumatic aortic (valve) stenosis (principal); I25.10 Atherosclerotic heart disease of native coronary artery without angina pectoris; I48.92 Unspecified atrial flutter; R60.9 Edema, unspecified; D64.9 Anemia, unspecified; E78.5 Hyperlipidemia, unspecified; Z79.82 Long term (current) use of aspirin; Z79.899 Other long term (current) drug therapy; Z87.891 Personal history of nicotine dependence ==